=== PATIENT | male | born 1980 | race Caucasian/White ===

== ENCOUNTER 2017-03-21 10:38 | Emergency (ER) | payer OTHER ==
[~2017-03-21] VITALS: Ht 177.8 cm; Wt 81.8 kg
[2017-03-21] MEDS ORDERED: SUMATRIPTAN 6MG/0.5ML SQ ONE ×2 (11:01→11:30)
[2017-03-21] MEDS ORDERED: KETOROLAC 30 MG/1 ML ONE (11:01)
[2017-03-21] MEDS ORDERED: ONDANSETRON 2MG/ML, 2ML ONE (11:01)
[2017-03-21] MEDS ORDERED: DIPHENHYDRAMINE 50 MG/ML, 1ML ONE (11:01)
[2017-03-21] MEDS ORDERED: METOCLOPRAMIDE 5 MG/ML, 2ML ONE (11:15)
[2017-03-21] MEDS ORDERED: DEXAMETHASONE 4 MG/ML, 5ML ONE (11:15)
[2017-03-21] MEDS ORDERED: DEXAMETHASONE 4 MG/ML, 1ML IVPush ONE (11:30)
[2017-03-21] MEDS ORDERED: KETOROLAC 30 MG/1 ML IVPush ONE (11:30)
[2017-03-21] MEDS ORDERED: DIPHENHYDRAMINE 50 MG/ML, 1ML IVPush ONE (11:30)
[2017-03-21] MEDS ORDERED: SODIUM CHLORIDE FLUSH 10ML SYR IVF ONE (11:30)
[2017-03-21] MEDS ORDERED: SODIUM CHLORIDE 0.9% 1,000ML IVBOLUS ONE (11:30)
[2017-03-21] MEDS ORDERED: METOCLOPRAMIDE 5 MG/ML, 2ML IVPush ONE (11:30)
[2017-03-21] MEDS ORDERED: DIAZEPAM 5 MG/ML, 10ML VIAL IV ONE (13:00)
[2017-03-21 13:26] VITALS: BP 127/72
== END 2017-03-21 13:28 | disposition home or self-care (01) ==
LOC: ED 11:42
DX: R51 Headache (principal)
CPT/HCPCS: 70450; 96372; 96374; 96375; 99285; J1100; J1200; J1885; J2765; J3030; J3360; J7030

== ENCOUNTER 2019-12-22 13:49 | Emergency (ER) | payer OTHER ==
[~2019-12-22] VITALS: Ht 177.8 cm; Wt 78.0 kg
--- NOTE | 2019-12-22 13:57 | NUR ---
PT WAS BIB BY [facility]. PT WAS DRIVING HIS TRUCK AND WAS AT A STOP LIGHT. THE LIGHT TURNED GREEN AND THE PERSON BEHIND HIM BECAME CONCERNED AND WENT TO CHECK ON HIM IN HIS TRUCK. HE WAS UNRESPONSIVE. 911 WAS CALLED. WHEN EMS ARRIVED HE WAS CYANOTIC, BREATHING AT A RATE OF 5 BREATHS PER MINUTE AND WAS 30% O2 SAT ON ROOM AIR. PT WAS GIVEN 1MG NARCAN [employer]. AFTER THE NARCAN THE PT WAS AOX4 WITH OPTIMAL O2 SAT. PT ADMITS TO "TAKING A HALF OF A 30MG PERC". PT IS NOT PRESCRIBED THIS MEDICINE. PT IS CURRENTLY 99% ON RM AIR. BLANKET PROVIDED. EKG HAS BEEN COMPLETED
--- NOTE | 2019-12-22 14:01 | NUR ---
REPORT RECEIVED FROM LYNN MARIE. ASSUMED PRIMARY CARE OF PT.
[2019-12-22] MEDS ORDERED: ONDANSETRON 2MG/ML, 2ML ONE (14:17)
--- NOTE | 2019-12-22 14:21 | NUR ---
PT MEDICATED PER EMAR. BGL 97.
[2019-12-22] MEDS ORDERED: ONDANSETRON 2MG/ML, 2ML IVPush ONE (14:30)
--- NOTE | 2019-12-22 15:07 | NUR ---
PT DISCHARGED HOME IN A STABLE CONDITION. DC INSTRUCTIONS DISCUSSED WITH PT. PT VERBALIZED UNDERSTANDING. NO FURTHER QUETIONS OR CONCERNS EXPRESSED AT THAT TIME. PIV ACCESS REMOVED WITH TIP INTACT.
[2019-12-22 15:08] VITALS: BP 102/67
== END 2019-12-22 15:09 | disposition home or self-care (01) ==
LOC: ED 14:49
DX: T40.2X1A Poisoning by other opioids, accidental (unintentional), initial encounter (principal); J96.01 Acute respiratory failure with hypoxia; R11.2 Nausea with vomiting, unspecified; R94.31 Abnormal electrocardiogram [ECG] [EKG]; Y92.89 Other specified places as the place of occurrence of the external cause
CPT/HCPCS: 82962; 93005; 96374; 99283; J2405